=== PATIENT | male | born 1955 | race Caucasian/White ===

== ENCOUNTER 2016-04-25 11:08 | Inpatient (IN) | payer OTHER ==
[~2016-04-25] VITALS: Ht 175.3 cm; Wt 60.1 kg
[2016-04-25 11:44] LABS: HEMATOCRIT 46.3 % (38.0-50.0); MCHC 34.6 G/DL (30.0-36.0); MCV 83.9 FL (86-99); MEAN PLAT.VOLUME 10.4 uM^3 (9.0-12.4); PLATELET COUNT 330 K/uL (156-360); RBC DIS.WIDTH-CV 13.7 % (11.8-14.6); RBC DIS.WIDTH-SD 42.5 % (39-53); RED BLOOD COUNT 5.52 M/uL (4.00-5.50); WHITE BLOOD COUNT 8.2 K/uL (4.1-10.2)
[2016-04-25 12:24] LABS: CHLORIDE 103 mEq/L (99-109); POTASSIUM 4.3 mEq/L (3.7-5.4); SODIUM 140 mEq/L (136-147)
[2016-04-25 12:25] LABS: GLUCOSE 105 mg/dL (70-99)
[2016-04-25 12:27] LABS: ANION GAP 14 MEQ/L (2-14)
[2016-04-25 12:29] LABS: GFR ESTIMATE (CALCULATED) > 59 mL/min/
[2016-04-25 12:30] LABS: UREA NITROGEN (BUN) 12 mg/dL (9-23)
[2016-04-25 14:18] LABS: ADD MIUA? NO; BILIRUBIN NEGATIVE; BLOOD NEGATIVE; COLOR LT YELLOW ((YELLOW)); GLUCOSE (STRIP) NEGATIVE; KETONES NEGATIVE; LEUKOCYTES NEGATIVE; NITRITE NEGATIVE; PROTEIN (STRIP) NEGATIVE; SPECIFIC GRAVITY 1.016 (1.000-1.030); UCUL ADDED? NO; UROBILINOGEN 0.2 MG/DL (0.2-1.0)
[2016-04-25] MEDS ORDERED: ASPIRIN325 MG PO (15:20)
[2016-04-25 18:15] VITALS: BP 135/93
[2016-04-25 18:22] LABS: TROP-I INTERPRETATION NEGATIVE; TROPONIN-I < 0.01 ng/mL (0.0-0.30)
[2016-04-25 18:23] LABS: HDL CHOLESTEROL 46 MG/DL (Desirable>=40); LDL CHOLESTEROL 148 mg/dL (Desirable<100); NON-HDL CHOLESTEROL 164 mg/dL (Desirable<160); TOTAL CHOLESTEROL 210 mg/dL (Desirable<200); TRIGLYCERIDES 80 MG/DL (Normal: <150)
[2016-04-25 19:39] VITALS: BP 105/68
[2016-04-25 21:37] LABS: Estimated Average Glucose 117 mg/dL (70-123); HEMOGLOBIN A1c (GLYCOHEMOGLOB) 5.7 % HGB (Below 5.7)
[2016-04-26 00:29] VITALS: BP 90/59
[2016-04-26 07:14] LABS: ANION GAP 9 MEQ/L (2-14); CHLORIDE 101 MEQ/L (99-109); GFR ESTIMATE (CALCULATED) > 59 mL/min/; GLUCOSE 89 mg/dL (70-99); POTASSIUM 4.1 MEQ/L (3.7-5.4); SAMPLE HEMOLYSIS CHECK 0; SAMPLE ICTERIC CHECK 0; SAMPLE LIPEMIA CHECK 0; SODIUM 137 MEQ/L (136-147); UREA NITROGEN (BUN) 14 mg/dL (9-23)
[2016-04-26 08:15] VITALS: BP 115/65
[2016-04-26 09:58] LABS: TREPONEMA ANTIBODY NEGATIVE (NEGATIVE)
[2016-04-26 11:10] VITALS: BP 127/86
[2016-04-26 15:20] VITALS: BP 128/80
[2016-04-26 19:43] VITALS: BP 130/52
[2016-04-27] VITALS: BP 134/86
[2016-04-27 04:00] VITALS: BP 119/81
[2016-04-27 08:00] VITALS: BP 107/76
[2016-04-27 11:28] VITALS: BP 110/80
[2016-04-27 16:07] VITALS: BP 108/74
[2016-04-27 19:38] VITALS: BP 112/77
[2016-04-28 00:01] VITALS: BP 99/53
[2016-04-28 04:18] VITALS: BP 105/63
[2016-04-28 07:56] VITALS: BP 121/68
[2016-04-28] MEDS ORDERED: CHLORDIAZEPOXID25 MG PO (09:38)
[2016-04-28] MEDS ORDERED: FAMOTIDINE20 MG PO (09:38)
[2016-04-28] MEDS ORDERED: NICOTINE PATCH1 EAC2 TD (09:38)
[2016-04-28] MEDS ORDERED: ATORVASTATIN CA40 MG PO (09:38)
[2016-04-28] MEDS ORDERED: ASPIR-LOW81 MG PO (09:38)
[2016-04-28] MEDS ORDERED: BUPROPION XL150 MG PO (09:38)
[2016-04-28 11:58] VITALS: BP 128/64
== END 2016-04-28 14:20 | disposition home or self-care (01) | DRG 65 ==
LOC: EME 11:08 → 5SOUTH 14:18 → EDOF 14:18 → 5SOUTH 18:06
PROVIDERS: Emergency Medicine; Internal Medicine
DX: I63.9 Cerebral infarction, unspecified (principal); Z68.1 Body mass index [BMI] 19.9 or less, adult; F33.9 Major depressive disorder, recurrent, unspecified; J44.9 Chronic obstructive pulmonary disease, unspecified; F17.210 Nicotine dependence, cigarettes, uncomplicated; F41.9 Anxiety disorder, unspecified; F10.20 Alcohol dependence, uncomplicated; R00.1 Bradycardia, unspecified; E78.00 Pure hypercholesterolemia, unspecified; R63.6 Underweight; G47.00 Insomnia, unspecified; I27.2 Other secondary pulmonary hypertension; I34.0 Nonrheumatic mitral (valve) insufficiency; I36.1 Nonrheumatic tricuspid (valve) insufficiency
CPT/HCPCS: 70450; 70496; 70498; 70551; 71020; 80048; 80061; 81003; 83036; 84443; 84484; 85027; 86780; 93005; 93306; 94640; 94640 76; 94760; 99202; 99281; 99285; J1650; J2060; J7030; S0028

== ENCOUNTER → 2017-02-11 | Outpatient (CLI) | payer OTHER ==
[~2017-02-11] MED LIST: ASPIR-LOW81 MG PO; ASPIRIN325 MG PO; ATORVASTATIN CA40 MG PO; BUPROPION XL150 MG PO; CHLORDIAZEPOXID25 MG PO; FAMOTIDINE20 MG PO; NICOTINE PATCH1 EAC2 TD
== END | disposition home or self-care (01) ==
LOC: CDC 12:20
DX: Z01.810 Encounter for preprocedural cardiovascular examination (principal); K40.90 Unilateral inguinal hernia, without obstruction or gangrene, not specified as recurrent
CPT/HCPCS: 93000

== ENCOUNTER 2017-03-04 05:31 | Day surgery (SDC) | payer OTHER ==
[~2017-03-04] VITALS: Ht 177.8 cm; Wt 59.0 kg
[~2017-03-04 05:31] MED LIST changes: +ASPIRIN81 M2 PO; +LIPITOR40 MG PO
[2017-03-04 06:15] VITALS: BP 151/81
[2017-03-04] MEDS ORDERED: NORCO 5/3251 TABLET PO (08:17)
[2017-03-04 09:26] VITALS: BP 133/74
[2017-03-04 10:22] VITALS: BP 130/68
[2017-03-04 11:01] VITALS: BP 130/76
== END 2017-03-04 11:11 | disposition home or self-care (01) ==
LOC: SDC
DX: K40.90 Unilateral inguinal hernia, without obstruction or gangrene, not specified as recurrent (principal); D17.6 Benign lipomatous neoplasm of spermatic cord; J44.9 Chronic obstructive pulmonary disease, unspecified; E78.00 Pure hypercholesterolemia, unspecified; Z86.73 Personal history of transient ischemic attack (TIA), and cerebral infarction without residual deficits; Z79.82 Long term (current) use of aspirin; F17.200 Nicotine dependence, unspecified, uncomplicated
CPT/HCPCS: 88302; C1781; G0480; J0690; J1100; J1885; J2250; J2405; J3010

== ENCOUNTER 2017-05-13 08:02 | Observation (INO) | payer OTHER ==
[~2017-05-13] VITALS: Ht 177.8 cm; Wt 63.2 kg
[~2017-05-13 08:02] MED LIST changes: +NORCO 5/3251 TABLET PO
[2017-05-13 08:37] LABS: HEMATOCRIT 42.8 % (38.0-50.0); HEMOGLOBIN 14.6 G/DL (12.5-16.6); MCH 30.7 PG (29.0-34.0); MCHC 34.1 G/DL (30.0-36.0); MCV 89.9 FL (86-99); PLATELET COUNT 239 K/uL (156-360); RBC DIS.WIDTH-CV 13.7 % (11.8-14.6); RBC DIS.WIDTH-SD 45.7 % (39-53); RED BLOOD COUNT 4.76 M/uL (4.00-5.50); WHITE BLOOD COUNT 5.2 K/uL (4.1-10.2)
[2017-05-13 08:50] LABS: CHLORIDE 105 mEq/L (99-109); SODIUM 141 mEq/L (136-147)
[2017-05-13 08:52] LABS: GLUCOSE 103 mg/dL (70-99)
[2017-05-13 08:55] LABS: SERUM ETHYL ALCOHOL < 10 mg/dL
[2017-05-13 08:56] LABS: CREATININE 0.8 mg/dL (0.6-1.3); GFR ESTIMATE (CALCULATED) > 59 mL/min/ (58.99-99999)
[2017-05-13 08:57] LABS: UREA NITROGEN (BUN) 7 mg/dL (9-23)
[2017-05-13 12:56] LABS: AMPHETAMINE NEGATIVE (500 ng/mL); BARBITURATES NEGATIVE (200 ng/mL); BENZODIAZEPINES NEGATIVE (150 ng/mL); BUPRENORPHINE NEGATIVE (10 ng/mL); COCAINE NEGATIVE (150 ng/mL); METHADONE NEGATIVE (200 ng/mL); METHAMPHETAMINE NEGATIVE (500 ng/mL); OPIATES (MORPHINE) NEGATIVE (100 ng/mL); OXYCODONE NEGATIVE (100 ng/mL); PHENCYCLIDINE NEGATIVE (25 ng/mL); PROPOXYPHENE NEGATIVE (300 ng/mL); THC CANNABINOIDS NEGATIVE (50 ng/mL); TRICYCLIC ANTIDEPRESSANTS NEGATIVE (300 ng/mL)
[2017-05-13 15:09] LABS: HDL CHOLESTEROL 68 MG/DL (Desirable>=40); LDL CHOLESTEROL 55 mg/dL (Desirable<100); NON-HDL CHOLESTEROL 75 mg/dL (Desirable<160); TOTAL CHOLESTEROL 143 mg/dL (Desirable<200); TRIGLYCERIDES 98 MG/DL (Normal: <150)
[2017-05-13 15:37] VITALS: BP 136/75
[2017-05-13 19:00] VITALS: BP 119/77
[2017-05-13 23:59] VITALS: BP 104/54
[2017-05-14 03:54] VITALS: BP 108/57
[2017-05-14 07:27] VITALS: BP 122/69
[2017-05-14 09:39] LABS: HEMOGLOBIN A1c (GLYCOHEMOGLOB) 5.4 % (Below 5.7)
[2017-05-14 11:26] VITALS: BP 127/87
== END 2017-05-14 12:29 | disposition home or self-care (01) ==
LOC: EME 08:02 → EDOF 13:33 → 5WEST 13:33 → EDOF 13:33 → ENRESERV 13:44 → 5WEST 15:33
PROVIDERS: Emergency Medicine; Internal Medicine
DX: H53.8 Other visual disturbances (principal); I69.398 Other sequelae of cerebral infarction; F17.210 Nicotine dependence, cigarettes, uncomplicated; F12.90 Cannabis use, unspecified, uncomplicated; Z79.82 Long term (current) use of aspirin; F41.9 Anxiety disorder, unspecified; E78.5 Hyperlipidemia, unspecified
CPT/HCPCS: 70450; 70551; 71046; 80048; 80061; 83036; 85027; 93005; 99281; 99285; G0378; G0480; J1650; J2060; J7030